=== PATIENT | female | born 1990 | race Two or more races ===

== ENCOUNTER 2016-12-19 16:08 | Emergency (ER) | payer SELFPAY ==
[~2016-12-19] VITALS: Ht 157.5 cm; Wt 59.9 kg
[2016-12-19 16:14] VITALS: BP 105/57
--- NOTE | 2016-12-19 16:24 | NUR ---
DR FOWLER AT BEDSIDE FOR EVAL.
--- NOTE | 2016-12-19 16:45 | NUR ---
[facility] in ED - 12/19/16 at 1649 by [facility] AT BEDSIDE FOR EVAL.
--- NOTE | 2016-12-19 16:45 | NUR ---
RADIOLOGY AT BEDSIDE FOR CHEST XRAY.
== END 2016-12-19 17:30 | disposition home or self-care (01) ==
LOC: ER 16:12
DX: J18.9 Pneumonia, unspecified organism (principal)
CPT/HCPCS: 71010; 99283; A4606; Z7610

== ENCOUNTER 2017-08-30 22:46 | Emergency (ER) | payer OTHER ==
[~2017-08-30] VITALS: Ht 170.2 cm; Wt 64.9 kg
[2017-08-30 22:56] VITALS: BP 116/72
[2017-08-30 23:27] LABS: APPEARANCE,URINE SL CLOUDY (CLEAR); BILIRUBIN,URINE NEGATIVE (NEGATIVE); BLOOD, URINE NEGATIVE Ery/uL (NEGATIVE); COLOR,URINE Light yellow (YELLOW); KETONES,URINE NEGATIVE (NEGATIVE); LEUKOCYTE ESTERASE ,URINE NEGATIVE (NEGATIVE); NITRITE, URINE NEGATIVE (NEGATIVE); PH,URINE 8.5 (5.0-8.0); PROTEIN,URINE NEGATIVE (NEGATIVE); UGLUCOSE NEGATIVE (NEGATIVE); UROBILINOGEN,URINE 0.2 EU/dL (0.2)
== END 2017-08-31 00:19 | disposition home or self-care (01) ==
LOC: ER 22:48
DX: D50.9 Iron deficiency anemia, unspecified (principal); T45.4X5A Adverse effect of iron and its compounds, initial encounter; Y92.89 Other specified places as the place of occurrence of the external cause
CPT/HCPCS: 81001; 84703; 99284; A4606; Z7610; 81000-TC

== ENCOUNTER 2021-04-16 19:12 | Emergency (ER) | payer OTHER ==
[~2021-04-16] VITALS: Ht 160 cm; Wt 63.5 kg
--- NOTE | 2021-04-16 19:35 | NUR ---
BIBSELF C/O L SHOULDER PAIN SINCE 11AM THEN STARTED TO HAVE CP. PT A/OX4. TOLERATING R/A WELL WITH NO SOB.
[2021-04-16] MEDS ORDERED: IV NS 0.9% 500 ML BAG IV ONE (20:00)
--- NOTE | 2021-04-16 20:05 | NUR ---
RAC #20G S/L; PATENT AND INTACT. URINE AND BLOOD COLLECTED AND SENT TO LAB.
[2021-04-16 20:25] LABS: BASOPHILS % (AUTO) 0.4 % (0.0-2.0); HEMATOCRIT 40 % (33-45); HEMOGLOBIN 13.7 g/dL (11.5-14.8); LYMPHOCYTES # (AUTO) 1.7 K/uL (0.8-4.8); LYMPHOCYTES % (AUTO) 18.9 % (20.0-44.0); MEAN CORPUSCULAR HGB CONC 35 g/dl (31.0-36.0); MEAN CORPUSCULAR VOLUME 90 fL (82-100); MONOCYTES # (AUTO) 0.4 K/uL (0.1-1.30); MONOCYTES % (AUTO) 4.8 % (2.0-12.0); NEUTROPHILS # (AUTO) 6.7 K/uL (1.8-8.9); NEUTROPHILS % (AUTO) 75.9 % (43.0-81.0); PLATELET COUNT (AUTO) 257 K/uL (150-450); RED BLOOD CELL COUNT(AUTO) 4.38 MIL/uL (4.0-5.2); WHITE BLOOD COUNT (AUTO) 8.8 K/uL (4.3-11.0)
--- NOTE | 2021-04-16 20:40 | NUR ---
SECURITY ANALYST AT PT'S BEDSIDE
[2021-04-16 20:45] LABS: D-DIMER 0.23 mg/L(FEU (0.17-0.50)
[2021-04-16 20:57] LABS: CALCIUM, SERUM 9.5 mg/dL (8.5-10.1); CARBON DIOXIDE 26 mmol/L (21-32); CHLORIDE 97 mmol/L (98-107); CREATININE 0.8 mg/dL (0.6-1.3); GLUCOSE 101 mg/dL (74-106); POTASSIUM 3.4 mmol/L (3.5-5.1); SODIUM SERUM 135 mmol/L (136-145); UREA NITROGEN, BLOOD 12 mg/dL (7-18)
--- NOTE | 2021-04-16 21:21 | NUR ---
Patient discharged to home in stable condition. Written and verbal after care instructions given. Patient verbalizes understanding of instruction. PT ambulatory with a steady gait. IV removed. Catheter intact and site benign. Pressure and 4x4 applied to site. No bleeding noted.
[2021-04-16 21:33] VITALS: BP 115/56
== END 2021-04-16 21:35 | disposition home or self-care (01) ==
LOC: ER 19:29
DX: R07.89 Other chest pain (principal); D64.9 Anemia, unspecified; Z88.0 Allergy status to penicillin
CPT/HCPCS: 36415; 71045; 80048; 83880; 84484; 84703; 85025; 85378; 85730; 93005 ×3; 96360; 99285; J7040

== ENCOUNTER 2021-10-22 22:41 | Emergency (ER) | payer OTHER ==
[~2021-10-22] VITALS: Ht 167.6 cm; Wt 65.8 kg
[2021-10-22 23:43] VITALS: BP 117/79
[2021-10-23] MEDS ORDERED: GUAI237L98 PO (00:10)
--- NOTE | 2021-10-23 00:25 | NUR ---
Patient discharged to home in stable condition. Written and verbal after care instructions given. Patient verbalizes understanding of instruction.
== END 2021-10-23 00:25 | disposition home or self-care (01) ==
LOC: ER 22:47
DX: R05.9 Cough, unspecified (principal); D64.9 Anemia, unspecified; Z88.0 Allergy status to penicillin